=== PATIENT | female | born 1950 | race Caucasian/White ===

== ENCOUNTER 2018-09-25 17:53 | Inpatient (IN) | payer OTHER ==
[~2018-09-25] VITALS: Ht 172.7 cm; Wt 69.2 kg
[~2018-09-25 17:53] MED LIST: CRUTCH2 XX; LISI5 PO; NSAID; Norco 10-325 T1 EACH PO; SLEEPING MEDICATION
[2018-09-25 18:25] LABS: BASOPHILS ABSOLUTE AUTO 0.05 K/mm3 (0.00-0.23); BASOPHILS PERCENT AUTO 0 % (0-2); EOSINOPHILS ABSOLUTE AUTO 0.04 K/mm3 (0.00-0.68); EOSINOPHILS PERCENT AUTO 0 % (0-6); Hematocrit 40.5 % (33.0-51.0); Hemoglobin 14.5 g/dL (11.5-16.0); IMMATURE GRAN ABSOLUTE AUTO 0.05 K/mm3 (0.00-0.10); IMMATURE GRAN PERCENT AUTO 0 % (0-1); LYMPHOCYTES ABSOLUTE AUTO 2.92 K/mm3 (0.84-5.20); LYMPHOCYTES PERCENT AUTO 26 % (21-46); MONOCYTES ABSOLUTE AUTO 0.98 K/mm3 (0.16-1.47); MONOCYTES PERCENT AUTO 9 % (4-13); Mean Corpuscular HGB 32.7 pg (26.0-34.0); Mean Corpuscular HGB Conc 35.8 g/dL (31.5-36.5); Mean Corpuscular Volume 91 fL (80-100); Mean Platelet Volume 9.5 fL (9.1-12.4); NEUTROPHILS ABSOLUTE AUTO 7.42 K/mm3 (1.96-9.15); NEUTROPHILS PERCENT AUTO 65 % (41-73); Platelet Count 333 K/mm3 (150-400); RDW Coefficient Variation 11.7 % (11.7-14.2); RDW Standard Deviation 39.6 fL (35.1-46.3); Red Blood Cell Count 4.43 M/mm3 (3.80-5.20); White Blood Cell Count 11.46 K/mm3 (4.00-11.30)
[2018-09-25 18:39] LABS: Alanine Aminotransfer (ALT/SGP 46 U/L (12-78); Albumin, Blood 3.7 g/dL (3.4-5.0); Alk Phos 66 U/L (50-136); Anion Gap 6 mmol/L (6-16); Aspartate Aminotrans (AST/SGOT 85 U/L (12-37); Bilirubin, Total 0.3 mg/dL (0.1-1.0); Blood Urea Nitrogen 9 mg/dL (8-24); Bun/Creatinine Ratio 18.3 (12.0-20.0); CO2, Blood 24 mmol/L (21-32); Calcium, Blood 8.9 mg/dL (8.5-10.1); Chloride, Blood 96 mmol/L (98-108); Creatinine, Blood 0.49 mg/dL (0.40-1.00); Globulin, Blood 3.7 g/dL (2.2-4.0); Glomerular Filtration Rate >60 (60-); Glucose, Blood 116 mg/dL (70-99); Potassium, Blood 4.2 mmol/L (3.5-5.5); Sodium, Blood 126 mmol/L (136-145); Total Protein, Blood 7.4 g/dL (6.4-8.2); Troponin I <0.015 ng/mL (0.000-0.040)
[2018-09-25 22:01] LABS: International Normalized Ratio 0.95; Prothrombin Time Results 10.1 Sec (9.7-11.5)
--- NOTE | 2018-09-26 00:45 | NUR ---
ARRIVAL PT ARRIVED TO UNIT VIA GURNERY FROM ED. [facility]. PT ABLE TO PUT WEIGHT ON RIGHT FOOT BUT REPORTS IT BEING DIFFICULT TO USE THIS FOOT. ORIENTED PT TO ROOM, UNIT AND POLICIES. ADMISSION PROCESS COMPLETED. VITAL SIGNS STABLE. PT RIGHT FOOT HAS WEAK PULSE. PT RIGHT FOOT PURPLE IN COLOR AND COOL TO TOUCH. PT REPORTS COLORATION HAS IMPORVED SOME SINCE STARTING "THE MEDICATION" (HEPARIN). PT REPROT THIS FOOT STILL NUMB AT THIS TIME. PT REPROTS PAIN IN THE RIGHT UPPER LEG WELL BUT REPORTS THIS HAS IMPROVED SINCE ARRIVAL. FAMILY AT BEDSIDE. BED IN LOW POSITION, CALL LIGHT IN REACH AND PT DENIES ANY NEEDS AT THIS TIME.
[2018-09-26 01:12] LABS: Source, Urine Clean Catch
[2018-09-26 01:19] LABS: Appearance, Urine Clear (Clear); Bilirubin, Urine Neg (Neg); Blood, Urine Neg (Neg); Color, Urine Amber (P-Yellow); Glucose Qualitative, Urine Neg (Neg); Ketones, Urine 1+ (Neg); Leukocyte Esterase, Urine 1+ (Neg); Nitrite, Urine Neg (Neg); Protein, Urine Neg (Neg); Specific Gravity, Urine 1.015 (1.003-1.022); Urobilinogen, Urine NORM (Normal)
[2018-09-26 01:26] LABS: Amorphous Light (0-Heavy); Bacteria Many /hpf; Mucus Light (0-Heavy); Red Blood Cells, Urine 0-2 /hpf (0-2); Squamous Epithelial Cells Mod /hpf (Few)
[2018-09-26 05:21] LABS: Hematocrit 41.4 % (33.0-51.0); Hemoglobin 14.5 g/dL (11.5-16.0); Mean Corpuscular Volume 91 fL (80-100); Mean Platelet Volume 9.4 fL (9.1-12.4); Platelet Count 325 K/mm3 (150-400); RDW Coefficient Variation 11.9 % (11.7-14.2); RDW Standard Deviation 39.8 fL (35.1-46.3); Red Blood Cell Count 4.53 M/mm3 (3.80-5.20); White Blood Cell Count 7.61 K/mm3 (4.00-11.30)
--- NOTE | 2018-09-26 05:36 | NUR ---
SHIFT SUMMARY PT PLEASANT, COOPERTIVE AND USES CALL LIGHT APPROPRIATELY. PT REMAINS A&OX4. VITAL SIGNS REMAIN STABLE. ASSESSMENT FINDINGS REMAIN UNCHANGED. PT ABLE TO USE BEDSIDE COMMODE WITH ONE PERSON ASSIST NEEDED. PT HAD INCREASED PAIN INTERMITTENTLY, PRN PAIN MEDICATION GIVEN PER EMAR. FAMILY REMAINS AT BEDSIDE. HEPARIN DRIP CONTINUES TO RUN AT THIS TIME. BED IN LOW POSITION, CALL LIGHT IN REACH AND PT DENIES ANY NEEDS AT THIS TIME. WILL CONTINUE TO MONITOR UNTIL HANDOFF TO DAYSHIFT RN.
[2018-09-26 05:47] LABS: Alanine Aminotransfer (ALT/SGP 45 U/L (12-78); Albumin, Blood 3.8 g/dL (3.4-5.0); Alk Phos 69 U/L (50-136); Anion Gap 5 mmol/L (6-16); Aspartate Aminotrans (AST/SGOT 78 U/L (12-37); Bilirubin, Total 0.6 mg/dL (0.1-1.0); Blood Urea Nitrogen 8 mg/dL (8-24); CO2, Blood 30 mmol/L (21-32); Calcium, Blood 8.9 mg/dL (8.5-10.1); Chloride, Blood 97 mmol/L (98-108); Creatinine, Blood 0.67 mg/dL (0.40-1.00); Globulin, Blood 3.7 g/dL (2.2-4.0); Glomerular Filtration Rate >60 (60-); Glucose, Blood 113 mg/dL (70-99); Potassium, Blood 3.9 mmol/L (3.5-5.5); Sodium, Blood 132 mmol/L (136-145); Total Protein, Blood 7.5 g/dL (6.4-8.2)
--- NOTE | 2018-09-26 08:38 | NUR ---
Echocardiogram completed.
--- NOTE | 2018-09-26 11:11 | NUR ---
PT SITTING UP IN BED. DR COLEMAN IN EARLY THIS AM, PT WITH GO FOR PERIPHERAL IN BEDSPREAD FOLDER. ECHO DONE. PT SHOWERED. DISCHARGE PLANNING ROUNDED. DR ALVARENGA ALSO IN. AWAITING [facility] FOR PROCEDURE
--- NOTE | 2018-09-26 15:15 | NUR ---
PT OFF TO WORD PROCESSOR TECHNICIAN FOR PERIPHERAL WITH DR COLEMAN.
--- NOTE | 2018-09-26 17:42 | NUR ---
PT BACK FROM [facility]. HAS LEFT GROIN SITE WITH ANGIOSEAL, C/D/I, NO BRUISING. R FOOT NOW WITH REDNESS THROUGHOUT WITH INCREASED BLOOD FLOW. ONLY PURPLE DISCOLORATION NOW ON TOP OF GREAT TOE. PT VERY DROWSY BUT AWAKENS WITH STIMULI. SON AND DAUGHTER IN RM. PER [facility]ENTER RN'S, SFA WAS BALLOONED AND 1 STENT PLACED, POPLITEAL WAS ALSO BALLOONED. ALSO STATED PT'S BLOOD PRESSURE HIGH DURING PROCEDURE, WAS GIVEN LABETALOL AND HYDRALAZINE. NO OTHER ACUTE CHANGES THIS SHIFT, CONT TO MONITOR AND REPORT OFF TO NOC RN.
--- NOTE | 2018-09-27 05:49 | NUR ---
SHIFT SUMMARY PT SLEEPING FOMROTABLY IN ROOM AR THIS TIME. NO ACUTE CHANGES IN STATUS T/O NIGHT. PT WAS MEDICATED TWICE FOR PAIN TO R FOOT, TOLERATED WELL, PAIN RELIVED. R FOOT COLOR AND SENSATION IMPROVED GREATLY PER PT REPORT, STILL PAINFUL BUT GREATLY REDUCED, AND REPORTS IS STARTING TO FEEL FOOT AGAIN BEYOUND JUST PAIN. ANGIOSEAL IN PLACE OVER L GROIN ACCESS SITE. SITE WNL NO BLEEDING AND NO HEMATOMAS NOTED. PT GOT UP TO BSC W/ SBA AND TOLERATED MOVEMENT WELL. RESP EVEN UNLBAORED ON RA W/ SATS >92%. DENIES CP OR SOB. CALL LIGHT IN REACH, FAMILY AT BEDSIDE.
--- NOTE | 2018-09-27 12:34 | NUR ---
NOTIFIED DR ALVARENGA OF PT EVAL COMPLETED. WILL CONTINUE TO MONITOR.
[2018-09-27] MEDS ORDERED: ASPI81CH PO (14:08)
[2018-09-27] MEDS ORDERED: GABA300 PO (14:08)
[2018-09-27] MEDS ORDERED: CLOP75 PO (14:08)
--- NOTE | 2018-09-27 15:14 | NUR ---
DISCHARGE [facility] PT A&Ox4. CALM AND COOPERATIVE WITH CARE. PT RESTING IN BED DURING SHIFT, UP WITH 1PERSON SBA TO BSC. PT REPORTS SHARP/STABBING PAIN TO RIGHT LOWER EXTREMITIES, MEDICATED PER EMAR. PT DENIES CHEST PAIN, SOB AND NAUSEA/VOMITING DURING SHIFT. SPO2 >92% ON RA, BREATHING EVEN AND UNLABORED. LEFT GROIN SITE REMAINS UNCHANGED T/O SHIFT, TENDER, NO S/SX OF BLEEDING OR HEMATOMA NOTED. RLE PEDAL PULSES FAINT, CONFIRMED WITH DOPPLER. PT IN TO SEE PT, [facility], PT PERFERS [facility], [facility] [place] NOTIFIED. VSS. NO OTHER ACUTE CHANGES. PT/SON EDUCATED ON DISCHARGE INSTRUCTIONS, MEDICATIONS, FOLLOW UP APPOINTMENTS AND LEFT GROIN SITE CARE. PRESCRIPTION FAXED TO [facility] [place] PER PT TODD. PHYSICAL PRESCRIPTION FOR WALKER, BSC AND GAITBELT PROVIDED TO PT. ID CARD FOR STENT AND ANGIO-SEAL GIVEN TO PT. PT LEFT ROOM VIA WHEELCHAIR AT 1500. PT STABLE UPON DISCHARGE.
== END 2018-09-27 15:30 | disposition home or self-care (01) | DRG 253 ==
LOC: ER 17:53 → PCU 17:54
PROVIDERS: Emergency Medicine; Physician Assistant; ADMIT Internal Medicine
PROC: 047M341 Dilation of Right Popliteal Artery with Drug-eluting Intraluminal Device, using Drug-Coated Balloon, Percutaneous Approach (ICD-10-PCS; principal; 2018-09-27)
PROC: 047K3Z1 Dilation of Right Femoral Artery using Drug-Coated Balloon, Percutaneous Approach (ICD-10-PCS; 2018-09-27)
DX: I99.8 Other disorder of circulatory system (principal); E87.1 Hypo-osmolality and hyponatremia; I74.3 Embolism and thrombosis of arteries of the lower extremities; H00.013 Hordeolum externum right eye, unspecified eyelid; I10 Essential (primary) hypertension; F17.210 Nicotine dependence, cigarettes, uncomplicated; R55 Syncope and collapse; E86.0 Dehydration
CPT/HCPCS: 36140; 36415; 37226; 71046; 75625; 75716; 75774; 76937; 80053; 81001; 84484; 85025; 85027; 85347; 85610; 85730; 87086; 93005; 93010; 93306; 93926; 93971; 96365; 96366; 96375; 96376; 97110; 97116; 97162; 99152; 99153; 99285-25; A9270; C1760; C1769; C1874; C1887; C1894; C2623; G0378; J0360; J1170; J1644; J2060; J2250; J2405; J3010; J7030; Q9967

== ENCOUNTER 2018-11-16 09:27 | Day surgery (SDC) | payer OTHER ==
[~2018-11-16] VITALS: Ht 172.7 cm; Wt 69.0 kg
[~2018-11-16 09:27] MED LIST changes: +ASPI81CH PO; +CLOP75 PO; +GABA300 PO
--- NOTE | 2018-11-16 11:25 | NUR ---
PT AND SON RECEIVED DISCHARGE INSTRUCTIONS AND SUPPLEMENTAL INFORMATION ON LOOP RECORDER "CARE AFTER"; VERBALIZED GOOD UNDERSTANDING. PT LEFT FACILITY VIA AMBULATION WITH SON, CONDITION STABLE.
== END 2018-11-16 23:24 | disposition home or self-care (01) ==
LOC: MHTC 09:27
DX: R55 Syncope and collapse (principal); I47.1 Supraventricular tachycardia; I10 Essential (primary) hypertension; I73.9 Peripheral vascular disease, unspecified; E78.5 Hyperlipidemia, unspecified; Z87.891 Personal history of nicotine dependence; Z79.899 Other long term (current) drug therapy; Z79.02 Long term (current) use of antithrombotics/antiplatelets; Z79.82 Long term (current) use of aspirin
CPT/HCPCS: 33285; C1764

== ENCOUNTER 2018-12-14 10:48 | Day surgery (SDC) | payer OTHER | END 2018-12-14 23:39 | disposition home or self-care (01) | LOC: WOUND 10:48 | DX: L97.312 Non-pressure chronic ulcer of right ankle with fat layer exposed (principal); L97.519 Non-pressure chronic ulcer of other part of right foot with unspecified severity; I73.9 Peripheral vascular disease, unspecified; I10 Essential (primary) hypertension; F17.200 Nicotine dependence, unspecified, uncomplicated | CPT/HCPCS: G0463 ==

== ENCOUNTER 2018-12-20 00:07 | Day surgery (SDC) | payer OTHER | END 2018-12-20 23:54 | disposition home or self-care (01) | LOC: WOUND 00:07 | DX: L97.311 Non-pressure chronic ulcer of right ankle limited to breakdown of skin (principal); S91.101A Unspecified open wound of right great toe without damage to nail, initial encounter; I73.9 Peripheral vascular disease, unspecified; I10 Essential (primary) hypertension; G62.9 Polyneuropathy, unspecified; F17.200 Nicotine dependence, unspecified, uncomplicated ==

== ENCOUNTER 2018-12-27 09:15 | Day surgery (SDC) | payer OTHER ==
[~2018-12-27 09:15] MED LIST changes: -ASPI81CH PO; +Aspirin EC81 MG PO; -LISI5 PO; +ZESTRIL40 MG PO
== END 2018-12-27 23:20 | disposition home or self-care (01) ==
LOC: WOUND 09:15
DX: I96 Gangrene, not elsewhere classified (principal); L97.512 Non-pressure chronic ulcer of other part of right foot with fat layer exposed; L97.812 Non-pressure chronic ulcer of other part of right lower leg with fat layer exposed; I87.8 Other specified disorders of veins; I10 Essential (primary) hypertension; F17.200 Nicotine dependence, unspecified, uncomplicated; G62.9 Polyneuropathy, unspecified; Z79.82 Long term (current) use of aspirin; Z79.02 Long term (current) use of antithrombotics/antiplatelets; Z79.899 Other long term (current) drug therapy; Z95.0 Presence of cardiac pacemaker
CPT/HCPCS: 88305; 88312

== ENCOUNTER 2019-01-03 09:11 | Day surgery (SDC) | payer OTHER ==
[~2019-01-03 09:11] MED LIST changes: +ASPI81CH PO; -Aspirin EC81 MG PO; +LISI5 PO; -ZESTRIL40 MG PO
== END 2019-01-03 23:10 | disposition home or self-care (01) ==
LOC: WOUND 09:11
DX: L97.312 Non-pressure chronic ulcer of right ankle with fat layer exposed (principal); L97.512 Non-pressure chronic ulcer of other part of right foot with fat layer exposed; I73.9 Peripheral vascular disease, unspecified; I10 Essential (primary) hypertension; F17.200 Nicotine dependence, unspecified, uncomplicated

== ENCOUNTER 2019-01-08 09:05 | Day surgery (SDC) | payer OTHER | END 2019-01-08 22:41 | disposition home or self-care (01) | LOC: WOUND 09:05 | DX: L97.812 Non-pressure chronic ulcer of other part of right lower leg with fat layer exposed (principal); S91.101D Unspecified open wound of right great toe without damage to nail, subsequent encounter; I10 Essential (primary) hypertension; F17.200 Nicotine dependence, unspecified, uncomplicated; G62.9 Polyneuropathy, unspecified; I73.9 Peripheral vascular disease, unspecified; Z79.82 Long term (current) use of aspirin; Z79.02 Long term (current) use of antithrombotics/antiplatelets; Z79.899 Other long term (current) drug therapy ==

== ENCOUNTER 2019-01-10 06:04 | Day surgery (SDC) | payer OTHER ==
[~2019-01-10] VITALS: Ht 172.7 cm; Wt 70.0 kg
--- NOTE | 2019-01-10 07:42 | NUR ---
PT C/O RIGHT LEG PAIN X3 MONTHS POST PREVIOUS PVI. TODAY REPORTS 9/10 PAIN BEHIND RIGHT KNEE. PREPPED FOR PROCEDURE, RESTING ON GURNEY. RIGHT GREAT TOE WITH DRESSING ON IT PT REPORTS WOUND. RIGHT MEDIAL ANKLE WITH WOUND ALSO. PT STATES THAT SHE GOES TO WOUND CLINIC ONCE PER WEEK FOR MANAGEMENT AT THIS TIME. DRESSING INTACT OVER THAT WOUND WELL. DOPPLER PULSES NOTED ON RIGHT DP. PT RESTING SUPINE ON GURNEY WITH HOB ELEVATED TO 45 DE[address]ES. WILL CONSULT WITH DR COLEMAN FOR MEDICATION PAIN MANAGEMENT FOR PT RIGHT LEG.
== END 2019-01-10 16:00 | disposition home or self-care (01) ==
LOC: MHTC 06:04
DX: I73.9 Peripheral vascular disease, unspecified (principal); I10 Essential (primary) hypertension; Z79.02 Long term (current) use of antithrombotics/antiplatelets; Z79.82 Long term (current) use of aspirin; Z79.899 Other long term (current) drug therapy
CPT/HCPCS: 37224; 37229; 37232; 75710; 85347; 99152; 99153; C1714; C1725; C1760; C1769; C1887; C1894; C2623; J1200; J1644; J2060; J2250; J3010; J7030; Q9967

== ENCOUNTER 2019-01-17 08:59 | Day surgery (SDC) | payer OTHER ==
[~2019-01-17 08:59] MED LIST changes: -ASPI81CH PO; +Aspirin EC81 MG PO
== END 2019-01-17 23:15 | disposition home or self-care (01) ==
LOC: WOUND 08:59
DX: L97.812 Non-pressure chronic ulcer of other part of right lower leg with fat layer exposed (principal); S91.101D Unspecified open wound of right great toe without damage to nail, subsequent encounter; I73.9 Peripheral vascular disease, unspecified; I10 Essential (primary) hypertension; F17.200 Nicotine dependence, unspecified, uncomplicated; Z79.899 Other long term (current) drug therapy; Z79.82 Long term (current) use of aspirin; Z79.02 Long term (current) use of antithrombotics/antiplatelets

== ENCOUNTER 2019-01-27 14:33 | Inpatient (IN) | payer OTHER ==
[~2019-01-27] VITALS: Ht 172.7 cm; Wt 70.8 kg
[~2019-01-27 14:33] MED LIST changes: -LISI5 PO; +ZESTRIL40 MG PO
[2019-01-27 15:16] LABS: BASOPHILS ABSOLUTE AUTO 0.06 K/mm3 (0.00-0.23); BASOPHILS PERCENT AUTO 1 % (0-2); EOSINOPHILS ABSOLUTE AUTO 0.02 K/mm3 (0.00-0.68); EOSINOPHILS PERCENT AUTO 0 % (0-6); Hematocrit 37.2 % (33.0-51.0); IMMATURE GRAN ABSOLUTE AUTO 0.07 K/mm3 (0.00-0.10); IMMATURE GRAN PERCENT AUTO 1 % (0-1); LYMPHOCYTES PERCENT AUTO 15 % (21-46); MONOCYTES ABSOLUTE AUTO 1.13 K/mm3 (0.16-1.47); MONOCYTES PERCENT AUTO 10 % (4-13); Mean Corpuscular HGB 30.3 pg (26.0-34.0); Mean Corpuscular HGB Conc 34.9 g/dL (31.5-36.5); Mean Corpuscular Volume 87 fL (80-100); Mean Platelet Volume 8.8 fL (9.1-12.4); NEUTROPHILS ABSOLUTE AUTO 8.74 K/mm3 (1.96-9.15); NEUTROPHILS PERCENT AUTO 74 % (41-73); Platelet Count 462 K/mm3 (150-400); RDW Coefficient Variation 10.8 % (11.7-14.2); RDW Standard Deviation 33.8 fL (35.1-46.3); Red Blood Cell Count 4.29 M/mm3 (3.80-5.20); White Blood Cell Count 11.82 K/mm3 (4.00-11.30)
[2019-01-27 15:30] LABS: Alanine Aminotransfer (ALT/SGP 16 U/L (12-78); Albumin, Blood 3.2 g/dL (3.4-5.0); Albumin/Globulin Ratio 0.7 (0.8-1.8); Alk Phos 71 U/L (50-136); Anion Gap 11 mmol/L (6-16); Aspartate Aminotrans (AST/SGOT 23 U/L (12-37); Bilirubin, Total 0.5 mg/dL (0.1-1.0); Blood Urea Nitrogen 4 mg/dL (8-24); Bun/Creatinine Ratio 9.2 (12.0-20.0); CO2, Blood 22 mmol/L (21-32); Chloride, Blood 88 mmol/L (98-108); Creatinine, Blood 0.44 mg/dL (0.40-1.00); Globulin, Blood 4.8 g/dL (2.2-4.0); Glomerular Filtration Rate >60 (60-); Glucose, Blood 98 mg/dL (70-99); Potassium, Blood 3.7 mmol/L (3.5-5.5); Sodium, Blood 121 mmol/L (136-145)
[2019-01-28 04:50] LABS: BASOPHILS ABSOLUTE AUTO 0.05 K/mm3 (0.00-0.23); BASOPHILS PERCENT AUTO 1 % (0-2); EOSINOPHILS ABSOLUTE AUTO 0.03 K/mm3 (0.00-0.68); EOSINOPHILS PERCENT AUTO 0 % (0-6); Hemoglobin 12.2 g/dL (11.5-16.0); IMMATURE GRAN ABSOLUTE AUTO 0.05 K/mm3 (0.00-0.10); IMMATURE GRAN PERCENT AUTO 1 % (0-1); LYMPHOCYTES ABSOLUTE AUTO 1.38 K/mm3 (0.84-5.20); LYMPHOCYTES PERCENT AUTO 16 % (21-46); MONOCYTES ABSOLUTE AUTO 0.97 K/mm3 (0.16-1.47); MONOCYTES PERCENT AUTO 11 % (4-13); Mean Corpuscular HGB 30.3 pg (26.0-34.0); Mean Corpuscular HGB Conc 34.9 g/dL (31.5-36.5); Mean Corpuscular Volume 87 fL (80-100); Mean Platelet Volume 8.9 fL (9.1-12.4); NEUTROPHILS ABSOLUTE AUTO 6.17 K/mm3 (1.96-9.15); NEUTROPHILS PERCENT AUTO 71 % (41-73); Platelet Count 484 K/mm3 (150-400); RDW Coefficient Variation 10.8 % (11.7-14.2); RDW Standard Deviation 34.9 fL (35.1-46.3); Red Blood Cell Count 4.02 M/mm3 (3.80-5.20); White Blood Cell Count 8.65 K/mm3 (4.00-11.30)
[2019-01-28 05:05] LABS: Anion Gap 8 mmol/L (6-16); Blood Urea Nitrogen 9 mg/dL (8-24); Bun/Creatinine Ratio 18.2 (12.0-20.0); CO2, Blood 26 mmol/L (21-32); Calcium, Blood 8.9 mg/dL (8.5-10.1); Chloride, Blood 93 mmol/L (98-108); Creatinine, Blood 0.49 mg/dL (0.40-1.00); Glomerular Filtration Rate >60 (60-); Glucose, Blood 117 mg/dL (70-99); Potassium, Blood 3.7 mmol/L (3.5-5.5); Sodium, Blood 127 mmol/L (136-145)
--- NOTE | 2019-01-28 07:31 | NUR ---
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 SEE PICTURES OF WOUNDS IN CHART. PT ALERT.PLEASANT. UNDERSTANDING OF CONCERNS. PT REPORTS ADEQUATE PAIN RELIEF WITH USE OF DILAUDID IV. PT WITH IV FLUIDS RUNNING AND PT CURRENTLY NPO PENDING PODIATRY CX AND VERB UNDERSTANDING OF NEED FOR NPO AT THIS TIME.
--- NOTE | 2019-01-28 16:20 | NUR ---
NOTIFIED DR. STARR OF REVASCULARIZATION PROCEDURE PLANNED FOR TOMORROW. NOTIFIED DR. HINES OF PLAN WELL. DR. HINES STILL RECOMMENDS AMPUTATION.
--- NOTE | 2019-01-28 16:37 | NUR ---
SHIFT SUMMARY NO ACUTE CHANGES THIS SHIFT. CONTINUING TO MEDICATE WITH 1MG IV DILAUDID FOR PAIN TO RLE. PODIATRY CONSULTED TODAY AND RECOMMENDS A BKA AND ORTHO CONSULT. ORTHO CONSULT PLACED. DR. COLEMAN RECOMMENDS REVASCULARIZATION WHICH IS SCHEDULED FOR TOMORROW. HOSPITALIST AND PODIATRY NOTIFIED. PT TO BE NPO AFTER MIDNIGHT FOR POSSIBLE PROCEDURE. IVF INFUSING PER ORDERS. PT UP TO BSC WITH 1-2 MODERATE ASSIST. USES CALL LIGHT APPROPRIATELY.
[2019-01-29 04:25] LABS: BASOPHILS ABSOLUTE AUTO 0.06 K/mm3 (0.00-0.23); BASOPHILS PERCENT AUTO 1 % (0-2); EOSINOPHILS ABSOLUTE AUTO 0.06 K/mm3 (0.00-0.68); EOSINOPHILS PERCENT AUTO 1 % (0-6); Hematocrit 36.1 % (33.0-51.0); Hemoglobin 12.1 g/dL (11.5-16.0); IMMATURE GRAN ABSOLUTE AUTO 0.06 K/mm3 (0.00-0.10); IMMATURE GRAN PERCENT AUTO 1 % (0-1); LYMPHOCYTES ABSOLUTE AUTO 1.99 K/mm3 (0.84-5.20); LYMPHOCYTES PERCENT AUTO 21 % (21-46); MONOCYTES ABSOLUTE AUTO 0.96 K/mm3 (0.16-1.47); MONOCYTES PERCENT AUTO 10 % (4-13); Mean Corpuscular HGB 30.5 pg (26.0-34.0); Mean Corpuscular HGB Conc 33.5 g/dL (31.5-36.5); Mean Platelet Volume 8.9 fL (9.1-12.4); NEUTROPHILS ABSOLUTE AUTO 6.15 K/mm3 (1.96-9.15); NEUTROPHILS PERCENT AUTO 67 % (41-73); Platelet Count 471 K/mm3 (150-400); RDW Coefficient Variation 10.8 % (11.7-14.2); RDW Standard Deviation 36.9 fL (35.1-46.3); Red Blood Cell Count 3.97 M/mm3 (3.80-5.20); White Blood Cell Count 9.28 K/mm3 (4.00-11.30)
[2019-01-29 04:27] LABS: Mean Corpuscular Volume 91 fL (80-100)
[2019-01-29 04:51] LABS: Anion Gap 9 mmol/L (6-16); Blood Urea Nitrogen 10 mg/dL (8-24); CO2, Blood 24 mmol/L (21-32); Calcium, Blood 9.2 mg/dL (8.5-10.1); Chloride, Blood 99 mmol/L (98-108); Creatinine, Blood 0.53 mg/dL (0.40-1.00); Glomerular Filtration Rate >60 (60-); Glucose, Blood 96 mg/dL (70-99); Potassium, Blood 3.6 mmol/L (3.5-5.5); Sodium, Blood 132 mmol/L (136-145)
--- NOTE | 2019-01-29 07:23 | NUR ---
SUMMARY: ADMIT DAY 2 RIGHT FOOT INFECTION. VSS, AFEBRILE, ROOM AIR, 1 ASSIST TO BSC AND VOIDING WELL. PAIN WELL CONTROLLED WITH PO NORCO AND 1MG DILAUDID THIS SHIFT. NPO AFTER MIDNIGHT IN ANTICIPATION OF POSSIBLE PROCEDURE LATER THIS DAY.
--- NOTE | 2019-01-29 16:14 | NUR ---
SHIFT SUMMARY NO ACUTE CHANGES TODAY. STILL WAITING ON ORTHO CONSULT. NPO UNTIL TREATMENT PLAN IN PLACE. 1MG IV DILAUDID FOR PAIN MANAGMENT. IVF INFUSING. 1-2 MOD ASSIST TO BSC. FAMILY AT BEDSIDE FOR SUPPORT. CALL LIGHT WITHIN REACH.
--- NOTE | 2019-01-29 19:25 | NUR ---
1924: DR. RAMAN ALMANZA ROUNDS ON PT AND OBTAINS CONSENT FOR SURGERY; ANTICIPATED RIGHT BKA. NPO AFTER MIDNIGHT, SURGICAL PACKET ON FRONT OF PT CHART.
[2019-01-30 03:57] LABS: BASOPHILS ABSOLUTE AUTO 0.06 K/mm3 (0.00-0.23); BASOPHILS PERCENT AUTO 1 % (0-2); EOSINOPHILS ABSOLUTE AUTO 0.09 K/mm3 (0.00-0.68); EOSINOPHILS PERCENT AUTO 1 % (0-6); Hematocrit 33.9 % (33.0-51.0); Hemoglobin 11.2 g/dL (11.5-16.0); IMMATURE GRAN ABSOLUTE AUTO 0.05 K/mm3 (0.00-0.10); IMMATURE GRAN PERCENT AUTO 1 % (0-1); LYMPHOCYTES ABSOLUTE AUTO 1.99 K/mm3 (0.84-5.20); LYMPHOCYTES PERCENT AUTO 21 % (21-46); MONOCYTES ABSOLUTE AUTO 1.04 K/mm3 (0.16-1.47); MONOCYTES PERCENT AUTO 11 % (4-13); Mean Corpuscular HGB 29.9 pg (26.0-34.0); Mean Corpuscular Volume 91 fL (80-100); Mean Platelet Volume 8.7 fL (9.1-12.4); NEUTROPHILS ABSOLUTE AUTO 6.33 K/mm3 (1.96-9.15); NEUTROPHILS PERCENT AUTO 66 % (41-73); Platelet Count 441 K/mm3 (150-400); RDW Standard Deviation 36.5 fL (35.1-46.3); Red Blood Cell Count 3.74 M/mm3 (3.80-5.20); White Blood Cell Count 9.56 K/mm3 (4.00-11.30)
[2019-01-30 04:17] LABS: Anion Gap 8 mmol/L (6-16); Blood Urea Nitrogen 7 mg/dL (8-24); Bun/Creatinine Ratio 15.9 (12.0-20.0); CO2, Blood 25 mmol/L (21-32); Chloride, Blood 100 mmol/L (98-108); Creatinine, Blood 0.44 mg/dL (0.40-1.00); Glomerular Filtration Rate >60 (60-); Glucose, Blood 100 mg/dL (70-99); Potassium, Blood 3.6 mmol/L (3.5-5.5); Sodium, Blood 133 mmol/L (136-145)
--- NOTE | 2019-01-30 17:05 | NUR ---
PT TO OR AT ABOUT 1650
--- NOTE | 2019-01-30 17:50 | NUR ---
01/30/19 0981 Zakia White PT IS ON SCHEDULED ANTIBIOTICS AND RECIEVED PRIOR TO ARRIVAL TO OR.
[2019-01-31 04:21] LABS: BASOPHILS ABSOLUTE AUTO 0.03 K/mm3 (0.00-0.23); BASOPHILS PERCENT AUTO 0 % (0-2); EOSINOPHILS PERCENT AUTO 0 % (0-6); Hematocrit 32.8 % (33.0-51.0); Hemoglobin 11.1 g/dL (11.5-16.0); IMMATURE GRAN ABSOLUTE AUTO 0.07 K/mm3 (0.00-0.10); IMMATURE GRAN PERCENT AUTO 1 % (0-1); LYMPHOCYTES ABSOLUTE AUTO 1.41 K/mm3 (0.84-5.20); LYMPHOCYTES PERCENT AUTO 13 % (21-46); MONOCYTES ABSOLUTE AUTO 0.81 K/mm3 (0.16-1.47); MONOCYTES PERCENT AUTO 8 % (4-13); Mean Corpuscular HGB 30.6 pg (26.0-34.0); Mean Corpuscular HGB Conc 33.8 g/dL (31.5-36.5); Mean Corpuscular Volume 90 fL (80-100); Mean Platelet Volume 8.7 fL (9.1-12.4); NEUTROPHILS ABSOLUTE AUTO 8.35 K/mm3 (1.96-9.15); NEUTROPHILS PERCENT AUTO 78 % (41-73); Platelet Count 457 K/mm3 (150-400); RDW Standard Deviation 36.5 fL (35.1-46.3); Red Blood Cell Count 3.63 M/mm3 (3.80-5.20); White Blood Cell Count 10.67 K/mm3 (4.00-11.30)
[2019-01-31 04:37] LABS: Anion Gap 6 mmol/L (6-16); Blood Urea Nitrogen 6 mg/dL (8-24); Bun/Creatinine Ratio 16.3 (12.0-20.0); CO2, Blood 28 mmol/L (21-32); Calcium, Blood 8.7 mg/dL (8.5-10.1); Chloride, Blood 101 mmol/L (98-108); Creatinine, Blood 0.37 mg/dL (0.40-1.00); Glomerular Filtration Rate >60 (60-); Glucose, Blood 150 mg/dL (70-99); Magnesium, Blood 1.8 mg/dL (1.6-2.4); Potassium, Blood 3.7 mmol/L (3.5-5.5); Sodium, Blood 135 mmol/L (136-145)
--- NOTE | 2019-01-31 08:09 | NUR ---
SUMMARY PT RECEIVED POSTOP TONIGHT S/P R BKA. PT VOIDING PER BEDPAN, BUT ALSO WITH URINARY RETENTION REQUIRING IN AND OUT CATH.ALSO HAD INCREASED SWELLING NOTED R STUMP.PT WIH HYPERTENSION. TAKES ZESTRIL AT HOME AND HAS NOT BEEN ORDERED AT THIS TIME.DILAUDID GIVEN IV TO DETERMINE IF HTN R/T PAIN,BUT CONTINUED ELEVATED AFTER.Daryl COLLINS RN SURG SUPERVISER ASSISTED THIS RN LINETTE REMOVE STUMP SOCK, LOOSENED GAUZE WRAP AT TOP AND LOOSENED TOP KENNETH WRAP. SCANT SERO-SANG NOTED TO INC END.STUMP WARM AND PINK. CONFIRMED R POPLITEAL PULSE WITH DOPPLER.REPLACED STUMP SOCK. INCREASED ELEVATION. FRESH ICE APPLIED. PT VERB IMPROVEMENT OF PAIN. BP IMPROVED TO SATISF LEVEL.PT RESTING AT SHIFT CHANGE.
--- NOTE | 2019-01-31 19:41 | NUR ---
SUMMARY: PT IS POD1 R BKA. DID WELL TODAY, A/0, VSS. SURGICAL SITE WNL. ABLE TO GET UP TO CHAIR WITH PT/OT. STUMP SITE DRESSING CHANGED BY DR. ALMANZA THIS EVENING. MEDICATED PER EMAR FOR PAIN. NO ACUTE SAFETY CONCERNS. REPORT GIVEN TO HECTOR GRANDE.
--- NOTE | 2019-02-01 07:32 | NUR ---
SUMMARY PT REPORTS FEELING BETTER TONIGHT. PAIN MEDS EFFECTIVE. FAMILY AT BEDSIDE.
--- NOTE | 2019-02-01 07:47 | NUR ---
OOB TO BSC 2 PERSON WITH GAIT BELT PT STATED SHE HAS TO VOID BUT ALSO FEELS LOKE SHE MIGHT NEED A BM
--- NOTE | 2019-02-01 10:52 | NUR ---
rechecked b/p improved also talked with pt about phantom limb pain
--- NOTE | 2019-02-01 12:27 | NUR ---
physical therapy and occupational therapy earlier worked with pt back into bed ss by plan for pt to go to [facility]
--- NOTE | 2019-02-01 14:31 | NUR ---
assisted pt to get dressed dr bassem sullivan by to see pt meds given
--- NOTE | 2019-02-01 15:01 | NUR ---
new dressing applied to coccyx
[2019-02-01] MEDS ORDERED: ACET325 PO (15:07)
[2019-02-01] MEDS ORDERED: BISA5EC PO (15:08)
[2019-02-01] MEDS ORDERED: DOCU100 PO (15:18)
[2019-02-01] MEDS ORDERED: HYDR1TAB94 PO (15:19)
--- NOTE | 2019-02-01 17:15 | NUR ---
wc transport to [facility] report called to therese no acute changes
== END 2019-02-01 17:20 | DRG 240 ==
LOC: ER 14:33 → SURS 17:09 → ERHOLD 17:09 → SURS 20:24
PROVIDERS: Orthopaedic Surgery; Physician Assistant; ADMIT Internal Medicine
PROC: 0Y6H0Z3 Detachment at Right Lower Leg, Low, Open Approach (ICD-10-PCS; principal; 2019-01-30 17:00)
DX: I70.261 Atherosclerosis of native arteries of extremities with gangrene, right leg (principal); E87.1 Hypo-osmolality and hyponatremia; L97.319 Non-pressure chronic ulcer of right ankle with unspecified severity; I10 Essential (primary) hypertension; Z87.891 Personal history of nicotine dependence; Z79.82 Long term (current) use of aspirin; G54.6 Phantom limb syndrome with pain; L97.519 Non-pressure chronic ulcer of other part of right foot with unspecified severity
CPT/HCPCS: 36415; 51701; 80048; 80053; 83605; 83735; 84145; 85025; 85651; 86140; 88307; 93926; 96374; 96375; 97110; 97162; 97166; 97530; 97535; 99285-25; A9270-GY; J0171; J0690; J1100; J1170; J1644; J2250; J2370; J2405; J2704; J2710; J3010; J7030

== ENCOUNTER → 2019-03-09 | Outpatient (CLI) | payer OTHER ==
[~2019-03-09] MED LIST changes: +ACET325 PO; +BISA5EC PO; +DOCU100 PO; +HYDR1TAB94 PO
== END | disposition home or self-care (01) ==
LOC: LAB EV 13:00 → LAB SHORT 13:00
DX: T81.40XA Infection following a procedure, unspecified, initial encounter (principal)
CPT/HCPCS: 87070; 87077; 87147; 87186; 87205

== ENCOUNTER 2019-10-11 00:07 | Day surgery (SDC) | payer OTHER | END 2019-10-11 22:38 | disposition home or self-care (01) | LOC: WOUND 00:07 | DX: L97.812 Non-pressure chronic ulcer of other part of right lower leg with fat layer exposed (principal); Z89.511 Acquired absence of right leg below knee; I10 Essential (primary) hypertension; G62.9 Polyneuropathy, unspecified; Z95.0 Presence of cardiac pacemaker; Z87.891 Personal history of nicotine dependence | CPT/HCPCS: G0463 ==

== ENCOUNTER 2019-10-25 00:14 | Day surgery (SDC) | payer OTHER | END 2019-10-25 22:52 | disposition home or self-care (01) | LOC: WOUND 00:14 | DX: L97.812 Non-pressure chronic ulcer of other part of right lower leg with fat layer exposed (principal); I10 Essential (primary) hypertension; F17.200 Nicotine dependence, unspecified, uncomplicated; Z89.511 Acquired absence of right leg below knee; Z79.899 Other long term (current) drug therapy; Z79.82 Long term (current) use of aspirin ==

== ENCOUNTER 2019-11-01 00:14 | Day surgery (SDC) | payer OTHER | END 2019-11-01 22:36 | disposition home or self-care (01) | LOC: WOUND 00:14 | DX: L97.812 Non-pressure chronic ulcer of other part of right lower leg with fat layer exposed (principal); Z89.511 Acquired absence of right leg below knee; I73.9 Peripheral vascular disease, unspecified; I10 Essential (primary) hypertension; F17.200 Nicotine dependence, unspecified, uncomplicated; Z79.899 Other long term (current) drug therapy; Z79.82 Long term (current) use of aspirin ==

== ENCOUNTER 2019-11-08 00:20 | Day surgery (SDC) | payer OTHER | END 2019-11-08 22:39 | disposition home or self-care (01) | LOC: WOUND 00:20 | DX: L97.812 Non-pressure chronic ulcer of other part of right lower leg with fat layer exposed (principal); I73.9 Peripheral vascular disease, unspecified; I10 Essential (primary) hypertension; F17.210 Nicotine dependence, cigarettes, uncomplicated; G62.9 Polyneuropathy, unspecified; Z89.511 Acquired absence of right leg below knee ==

== ENCOUNTER 2019-11-15 11:12 | Day surgery (SDC) | payer OTHER | END 2019-11-15 23:03 | disposition home or self-care (01) | LOC: WOUND 11:12 | DX: L97.812 Non-pressure chronic ulcer of other part of right lower leg with fat layer exposed (principal); I73.9 Peripheral vascular disease, unspecified; I10 Essential (primary) hypertension; F17.200 Nicotine dependence, unspecified, uncomplicated; Z89.511 Acquired absence of right leg below knee; Z79.899 Other long term (current) drug therapy ==

== ENCOUNTER 2019-11-27 00:35 | Day surgery (SDC) | payer OTHER | END 2019-11-27 22:37 | disposition home or self-care (01) | LOC: WOUND 00:35 | DX: L97.812 Non-pressure chronic ulcer of other part of right lower leg with fat layer exposed (principal); I73.9 Peripheral vascular disease, unspecified; Z89.511 Acquired absence of right leg below knee | CPT/HCPCS: G0463 ==

== ENCOUNTER 2019-12-05 00:48 | Day surgery (SDC) | payer OTHER | END 2019-12-05 22:52 | disposition home or self-care (01) | LOC: WOUND 00:48 | DX: T87.43 Infection of amputation stump, right lower extremity (principal); B99.9 Unspecified infectious disease; I96 Gangrene, not elsewhere classified; I10 Essential (primary) hypertension; H74.90 Unspecified disorder of middle ear and mastoid, unspecified ear; G62.9 Polyneuropathy, unspecified; Z79.82 Long term (current) use of aspirin; Z79.02 Long term (current) use of antithrombotics/antiplatelets; Z79.899 Other long term (current) drug therapy; Y83.5 Amputation of limb(s) as the cause of abnormal reaction of the patient, or of later complication, without mention of misadventure at the time of the procedure | CPT/HCPCS: G0463 ==

== ENCOUNTER 2019-12-13 02:03 | Day surgery (SDC) | payer OTHER | END 2019-12-13 22:42 | disposition home or self-care (01) | LOC: WOUND 02:03 | DX: L97.812 Non-pressure chronic ulcer of other part of right lower leg with fat layer exposed (principal); I73.9 Peripheral vascular disease, unspecified; I10 Essential (primary) hypertension; F17.200 Nicotine dependence, unspecified, uncomplicated; Z89.511 Acquired absence of right leg below knee; Z79.899 Other long term (current) drug therapy; Z79.02 Long term (current) use of antithrombotics/antiplatelets; Z79.82 Long term (current) use of aspirin | CPT/HCPCS: G0463 ==

== ENCOUNTER 2019-12-20 02:17 | Day surgery (SDC) | payer OTHER | END 2019-12-20 22:56 | disposition home or self-care (01) | LOC: WOUND 02:17 | DX: L97.812 Non-pressure chronic ulcer of other part of right lower leg with fat layer exposed (principal); I73.9 Peripheral vascular disease, unspecified; I10 Essential (primary) hypertension; Z89.511 Acquired absence of right leg below knee; F17.200 Nicotine dependence, unspecified, uncomplicated; Z79.899 Other long term (current) drug therapy ==

== ENCOUNTER → 2019-12-23 | Outpatient (CLI) | payer OTHER | END | disposition home or self-care (01) | LOC: LAB SHORT 18:29 → LAB 18:29 | DX: T87.89 Other complications of amputation stump (principal); L97.812 Non-pressure chronic ulcer of other part of right lower leg with fat layer exposed; Z89.511 Acquired absence of right leg below knee | CPT/HCPCS: 87070; 87075; 87205 ==

== ENCOUNTER 2019-12-27 01:17 | Day surgery (SDC) | payer OTHER | END 2019-12-27 22:55 | disposition home or self-care (01) | LOC: WOUND 01:17 | DX: L97.812 Non-pressure chronic ulcer of other part of right lower leg with fat layer exposed (principal); Z89.511 Acquired absence of right leg below knee; I73.9 Peripheral vascular disease, unspecified; I10 Essential (primary) hypertension; F17.200 Nicotine dependence, unspecified, uncomplicated; Z79.899 Other long term (current) drug therapy | CPT/HCPCS: G0463 ==

== ENCOUNTER 2019-12-31 13:43 | Day surgery (SDC) | payer OTHER | END 2019-12-31 23:09 | disposition home or self-care (01) | LOC: WOUND 13:43 | DX: T87.43 Infection of amputation stump, right lower extremity (principal); B99.9 Unspecified infectious disease; T87.53 Necrosis of amputation stump, right lower extremity; I10 Essential (primary) hypertension; F17.200 Nicotine dependence, unspecified, uncomplicated; I73.9 Peripheral vascular disease, unspecified; G62.9 Polyneuropathy, unspecified; H74.90 Unspecified disorder of middle ear and mastoid, unspecified ear; Z79.02 Long term (current) use of antithrombotics/antiplatelets; Z89.511 Acquired absence of right leg below knee; Z95.0 Presence of cardiac pacemaker; Z79.82 Long term (current) use of aspirin; Z79.899 Other long term (current) drug therapy; Y83.5 Amputation of limb(s) as the cause of abnormal reaction of the patient, or of later complication, without mention of misadventure at the time of the procedure ==

== ENCOUNTER 2020-01-07 00:57 | Day surgery (SDC) | payer OTHER | END 2020-01-07 23:02 | disposition home or self-care (01) | LOC: WOUND 00:57 | DX: L97.812 Non-pressure chronic ulcer of other part of right lower leg with fat layer exposed (principal); I73.9 Peripheral vascular disease, unspecified; I10 Essential (primary) hypertension; F17.200 Nicotine dependence, unspecified, uncomplicated; Z89.511 Acquired absence of right leg below knee; Z79.899 Other long term (current) drug therapy ==

== ENCOUNTER 2020-01-15 01:01 | Day surgery (SDC) | payer OTHER | END 2020-01-15 22:43 | disposition home or self-care (01) | LOC: WOUND 01:01 | DX: I96 Gangrene, not elsewhere classified (principal); L97.812 Non-pressure chronic ulcer of other part of right lower leg with fat layer exposed; L08.9 Local infection of the skin and subcutaneous tissue, unspecified; I10 Essential (primary) hypertension; G62.9 Polyneuropathy, unspecified; H74.90 Unspecified disorder of middle ear and mastoid, unspecified ear; Z79.82 Long term (current) use of aspirin; Z79.02 Long term (current) use of antithrombotics/antiplatelets; Z79.899 Other long term (current) drug therapy; Z89.511 Acquired absence of right leg below knee; Z95.0 Presence of cardiac pacemaker | CPT/HCPCS: G0463 ==

== ENCOUNTER 2020-01-27 01:27 | Day surgery (SDC) | payer OTHER | END 2020-01-27 22:44 | disposition home or self-care (01) | LOC: WOUND 01:27 | DX: L97.812 Non-pressure chronic ulcer of other part of right lower leg with fat layer exposed (principal); I73.9 Peripheral vascular disease, unspecified; I10 Essential (primary) hypertension; Z79.899 Other long term (current) drug therapy; F17.200 Nicotine dependence, unspecified, uncomplicated; Z89.511 Acquired absence of right leg below knee | CPT/HCPCS: G0463 ==

== ENCOUNTER → 2020-02-17 | Outpatient (CLI) | payer OTHER | END | disposition home or self-care (01) | LOC: LAB SHORT 15:00 → LAB 15:00 | DX: T81.49XA Infection following a procedure, other surgical site, initial encounter (principal); S81.801A Unspecified open wound, right lower leg, initial encounter | CPT/HCPCS: 87070; 87075; 87077; 87147; 87186; 87205 ==

== ENCOUNTER 2020-03-22 20:44 | Emergency (ER) | payer OTHER ==
[~2020-03-22] VITALS: Ht 157.5 cm; Wt 68.0 kg
[2020-03-22 21:24] LABS: BASOPHILS ABSOLUTE AUTO 0.03 K/mm3 (0.00-0.23); BASOPHILS PERCENT AUTO 0 % (0-2); EOSINOPHILS ABSOLUTE AUTO 0.01 K/mm3 (0.00-0.68); EOSINOPHILS PERCENT AUTO 0 % (0-6); Hematocrit 25.9 % (33.0-51.0); Hemoglobin 8.6 g/dL (11.5-16.0); IMMATURE GRAN ABSOLUTE AUTO 0.08 K/mm3 (0.00-0.10); IMMATURE GRAN PERCENT AUTO 1 % (0-1); LYMPHOCYTES PERCENT AUTO 7 % (21-46); MONOCYTES ABSOLUTE AUTO 1.49 K/mm3 (0.16-1.47); MONOCYTES PERCENT AUTO 11 % (4-13); Mean Corpuscular HGB 29.1 pg (26.0-34.0); Mean Corpuscular HGB Conc 33.2 g/dL (31.5-36.5); Mean Corpuscular Volume 88 fL (80-100); Mean Platelet Volume 9.5 fL (9.1-12.4); NEUTROPHILS PERCENT AUTO 81 % (41-73); Platelet Count 415 K/mm3 (150-400); RDW Coefficient Variation 13.6 % (11.7-14.2); RDW Standard Deviation 44.1 fL (35.1-46.3); Red Blood Cell Count 2.96 M/mm3 (3.80-5.20); White Blood Cell Count 13.61 K/mm3 (4.00-11.30)
[2020-03-22 21:36] LABS: Alanine Aminotransfer (ALT/SGP 11 U/L (12-78); Albumin, Blood 2.5 g/dL (3.4-5.0); Albumin/Globulin Ratio 0.5 (0.8-1.8); Alk Phos 82 U/L (50-136); Anion Gap 9 mmol/L (6-16); Aspartate Aminotrans (AST/SGOT 11 U/L (12-37); Bilirubin, Total 0.5 mg/dL (0.1-1.0); Blood Urea Nitrogen 10 mg/dL (8-24); Bun/Creatinine Ratio 20.7 (12.0-20.0); CO2, Blood 23 mmol/L (21-32); Calcium, Blood 8.8 mg/dL (8.5-10.1); Chloride, Blood 94 mmol/L (98-108); Creatinine, Blood 0.48 mg/dL (0.40-1.00); Globulin, Blood 4.7 g/dL (2.2-4.0); Glomerular Filtration Rate >60 (60-); Glucose, Blood 134 mg/dL (70-99); Magnesium, Blood 1.7 mg/dL (1.6-2.4); Potassium, Blood 3.9 mmol/L (3.5-5.5); Sodium, Blood 126 mmol/L (136-145); Total Protein, Blood 7.2 g/dL (6.4-8.2)
[2020-03-23 00:15] LABS: Influenza A, PCR Negative (NEGATIVE); Influenza B, PCR Negative (NEGATIVE); Resp Syncytial Virus, PCR Negative (NEGATIVE); SARS-Cov-2 (COVID-19) PCR, MMC Negative (NEGATIVE)
== END 2020-03-23 00:43 | disposition short-term general hospital (02) ==
LOC: ER 20:44
PROVIDERS: Emergency Medicine; Student in an Organized Health Care Education/Training Program
DX: T85.698A Other mechanical complication of other specified internal prosthetic devices, implants and grafts, initial encounter (principal); M79.604 Pain in right leg; I10 Essential (primary) hypertension; Z89.611 Acquired absence of right leg above knee; Z20.822 Contact with and (suspected) exposure to COVID-19; Z79.82 Long term (current) use of aspirin; Z79.02 Long term (current) use of antithrombotics/antiplatelets; Z79.899 Other long term (current) drug therapy; Z87.891 Personal history of nicotine dependence
CPT/HCPCS: 0241U; 36415; 73701; 80053; 83605; 83735; 84145; 85025; 86850; 86900; 86901; 87040; 87077; 87147; 87186; 96374; 96376; 99285-25; J2270; Q9967

== ENCOUNTER → 2020-07-08 | Outpatient (CLI) | payer OTHER | LOC: LAB SHORT 11:05 → PLD 11:05 | DX: L02.91 Cutaneous abscess, unspecified (principal) | CPT/HCPCS: 87070; 87077; 87147; 87186; 87205 ==

== ENCOUNTER 2024-07-07 18:42 | Emergency (ER) | payer MEDICARE ==
[~2024-07-07] VITALS: Ht 172.7 cm; Wt 63.5 kg
[2024-07-07 19:39] LABS: BASOPHILS ABSOLUTE AUTO 0.03 K/mm3 (0.00-0.23); BASOPHILS PERCENT AUTO 0 % (0-2); EOSINOPHILS ABSOLUTE AUTO 0.04 K/mm3 (0.00-0.68); EOSINOPHILS PERCENT AUTO 0 % (0-6); Hematocrit 39.1 % (33.0-51.0); Hemoglobin 14.2 g/dL (11.5-16.0); IMMATURE GRAN ABSOLUTE AUTO 0.05 K/mm3 (0.00-0.10); IMMATURE GRAN PERCENT AUTO 1 % (0-1); LYMPHOCYTES ABSOLUTE AUTO 2.04 K/mm3 (0.84-5.20); LYMPHOCYTES PERCENT AUTO 23 % (21-46); MONOCYTES ABSOLUTE AUTO 0.99 K/mm3 (0.16-1.47); MONOCYTES PERCENT AUTO 11 % (4-13); Mean Corpuscular HGB 32.1 pg (26.0-34.0); Mean Corpuscular HGB Conc 36.3 g/dL (31.5-36.5); Mean Corpuscular Volume 89 fL (80-100); Mean Platelet Volume 9.7 fL (9.1-12.4); NEUTROPHILS ABSOLUTE AUTO 5.86 K/mm3 (1.96-9.15); NEUTROPHILS PERCENT AUTO 65 % (41-73); Platelet Count 210 K/mm3 (150-400); RDW Coefficient Variation 12.6 % (11.7-14.2); RDW Standard Deviation 41.2 fL (35.1-46.3); Red Blood Cell Count 4.42 M/mm3 (3.80-5.20); White Blood Cell Count 9.01 K/mm3 (4.00-11.30)
[2024-07-07 20:01] LABS: Albumin, Blood 3.7 g/dL (3.4-5.0); Albumin/Globulin Ratio 1.1 (0.8-1.8); Bilirubin, Total 0.6 mg/dL (0.1-1.0); Bun/Creatinine Ratio 22.8 (12.0-20.0); Calcium, Blood 8.8 mg/dL (8.5-10.1); Creatinine, Blood 0.44 mg/dL (0.40-1.00); Globulin, Blood 3.3 g/dL (2.2-4.0); Potassium, Blood 3.7 mmol/L (3.5-5.5)
[2024-07-08] VITALS: BP 127/69
[2024-07-08] MEDS ORDERED: IBUP600 PO (01:14)
[2024-07-08] MEDS ORDERED: OXYACE7.5T PO (01:14)
[2024-07-08] MEDS ORDERED: ACET500 PO (01:14)
[2024-07-08] MEDS ORDERED: OxyCODONE 10/Acetamin 325 TABLET PO ONE (01:15)
== END 2024-07-08 01:46 | disposition home or self-care (01) ==
LOC: ER 18:42
PROVIDERS: Student in an Organized Health Care Education/Training Program
DX: S32.592A Other specified fracture of left pubis, initial encounter for closed fracture (principal); I10 Essential (primary) hypertension; I73.9 Peripheral vascular disease, unspecified; Z87.891 Personal history of nicotine dependence; Z89.611 Acquired absence of right leg above knee; Z99.3 Dependence on wheelchair; Z88.5 Allergy status to narcotic agent; Z79.82 Long term (current) use of aspirin; Z79.01 Long term (current) use of anticoagulants; Z79.899 Other long term (current) drug therapy; W05.0XXA Fall from non-moving wheelchair, initial encounter
CPT/HCPCS: 72193; 73502; 80053; 85025; 99284-25; A9270; Q9967